=== PATIENT | female | born 2000 | race Hispanic/Latino ===

== ENCOUNTER 2021-02-24 15:16 | Emergency (ER) | payer OTHER ==
[2021-02-24 15:49] VITALS: BP 116/72
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
== END 2021-02-24 16:32 | disposition home or self-care (01) ==
LOC: ED 15:16
DX: M79.18 Myalgia, other site (principal); M54.50 Low back pain, unspecified; R51.9 Headache, unspecified; M79.602 Pain in left arm; V87.7XXA Person injured in collision between other specified motor vehicles (traffic), initial encounter; Y93.89 Activity, other specified; Y92.488 Other paved roadways as the place of occurrence of the external cause; Y99.8 Other external cause status
CPT/HCPCS: 99282